=== PATIENT | male | born 1980 | race African-American/Black ===

== ENCOUNTER 2016-10-10 10:03 | Emergency (ER) | payer OTHER ==
[~2016-10-10] VITALS: Ht 182.9 cm; Wt 145.1 kg
[~2016-10-10 10:03] MED LIST: TETRACAINE 0.5% OPHTH SOLUTION 4ML BOTTLE. ONE
[2016-10-10] MEDS ORDERED: FLUORESCEIN 1MG EYE STRIP. ONE (10:18)
[2016-10-10] MEDS ORDERED: EYE-STREAM OPTH SOLUTION 30 ML BOTTLE. ONE (10:18)
[2016-10-10] MEDS ORDERED: TETRACAINE 0.5% OPHTH SOLUTION 4ML BOTTLE. ONE (10:36)
[2016-10-10] MEDS ORDERED: TETRACAINE 0.5% OPHTH SOLUTION 4ML BOTTLE. OS ONE (10:45)
[2016-10-10 10:54] VITALS: BP 152/87
[2016-10-10] MEDS ORDERED: POLY10DR EACHEYE (10:54)
--- NOTE | 2016-10-10 11:05 | PHYS DOC ---
Past History Past Medical History: No Pertinent History Past Surgical History: No Surgical History Alcohol Use: Occasionally Drug Use: None Adult General Chief Complaint Chief Complaint: EYE PROBLEMS HPI HPI This 36-year-old man thinks he might have bumped his L eye in the night and now has some pain in the and redness in the left eye. He presents with some pain and some redness of the conjunctiva of the left eye. He also thinks he sees a little white alice on the inner aspect of the right and is concerned about this. Review of Systems Review of Systems Constitutional: Denies fever or chills [] Eyes: Denies change in visual acuity, he has a little redness and left eye pain as mentioned before the pain is especially worse when he looks up [] HENT: Denies nasal congestion or sore throat [] Respiratory: Denies cough or shortness of breath [] Cardiovascular: No additional information not addressed in HPI [] GI: Denies abdominal pain, nausea, vomiting, bloody stools or diarrhea [] : Denies dysuria or hematuria [] Musculoskeletal: Denies back pain or joint pain [] Integument: Denies rash or skin lesions [] Neurologic: Denies headache, focal weakness or sensory changes [] Endocrine: Denies polyuria or polydipsia [] Current Medications Current Medications Current Medications Medications (Trade) Dose Ordered Sig/Dhiraj Start Time Stop Time Status Last Admin Dose Admin Eye Irrigation Solution 30 ml STK-MED ONCE 10/10/16 10:18 10/10/16 10:19 DC Fluorescein Sodium (Ful-Irma 1mg) 1 strip STK-MED ONCE 10/10/16 10:18 10/10/16 10:19 DC Tetracaine HCl (Tetracaine) 1 drop 1X ONCE 10/10/16 10:45 10/10/16 10:46 UNV 10/10/16 10:53 1 DROP Physical Exam Physical Exam Constitutional: Well developed, well nourished, no acute distress, non-toxic appearance. [] HENT: Normocephalic, atraumatic, bilateral external ears normal, oropharynx moist, no oral exudates, nose normal. [] Eyes: PERRLA, EOMI, conjunctiva normal, no discharge. Detailed eye examination reveals the pupils are equal. There is some conjunctival redness in the left eye. Fluorescein stain was used to examine the eye and no uptake of stain was noted on the cornea by slit lamp. No flare or cells were noted in the anterior chamber. Examination of the eye reveals an early pinguecula medial aspect of the right eye approaching the cornea. No foreign bodies were noted in the conjunctival sac Funduscopic examination is entirely normal. Mac-Pen was used to measure the pressures and pressures of 13, 15, 13, 21 were noted Neck: Normal range of motion, no tenderness, supple, no stridor. [] Cardiovascular:Heart rate regular rhythm, no murmur [] Lungs & Thorax: Bilateral breath sounds clear to auscultation [] Abdomen: Bowel sounds normal, soft, no tenderness, no masses, no pulsatile masses. [] Skin: Warm, dry, no erythema, no rash. [] Back: No tenderness, no CVA tenderness. [] Extremities: No tenderness, no cyanosis, no clubbing, ROM intact, no edema. [] Neurologic: Alert and oriented X 3, normal motor function, normal sensory function, no focal deficits noted. [] Psychologic: Affect normal, judgement normal, mood normal. [] Current Patient Data Vital Signs Vital Signs Date Time Temp Pulse Resp B/P (MAP) Pulse Ox O2 Delivery O2 Flow Rate FiO2 10/10/16 10:54 88 18 152/87 (108) 95 Room Air 10/10/16 10:27 98.2 EKG EKG [] Radiology/Procedures Radiology/Procedures [] Impressions: Conjunctivitis Course & Med Decision Making Course & Med Decision Making This gentleman was placed on Polytrim eyedrops to use 4 times daily. He was instructed that if his problems don't resolve to follow-up with the licensed prosthetist or return It was explained that he had a early pinguecula but should not cause any problems but he could inquire about this with the licensed prosthetist He was instructed to follow-up within a week and was given names of licensed prosthetist [] Dragon Disclaimer Dragon Disclaimer This chart was dictated in whole or in part using Voice Recognition software in a busy, high-work load, and often noisy Emergency Department environment. It may contain unintended and wholly unrecognized errors or omissions. Departure Departure: Impression: Primary Impression: Conjunctivitis Disposition: 01 HOME, SELF-CARE Condition: STABLE Patient Instructions: Conjunctivitis (Viral and Bacterial) Additional Instructions: Follow up with an Ophthalmalogist (eye doctor ) within one week for recheck The white on the inner portion of her eye going on to the Brown is called a Pinguecula and you have only a very tiny beginning of one Scripts Polymyxin B Sulf/Trimethoprim (POLYTRIM EYE DROPS) 10 Ml Drops 1 DROP EACHEYE Q6HRS for 7 Days, #10 ML Prov: JUSTINE CENTENO MD 10/10/16 JUSTINE CENTENO MD Oct 10, 2016 11:05
== END 2016-10-10 11:04 | disposition home or self-care (01) ==
LOC: ER 10:03
DX: H10.9 Unspecified conjunctivitis (principal)
CPT/HCPCS: 99283

== ENCOUNTER 2017-05-23 20:03 | Emergency (ER) | payer OTHER ==
[~2017-05-23 20:03] MED LIST changes: +POLY10DR EACHEYE; -TETRACAINE 0.5% OPHTH SOLUTION 4ML BOTTLE. ONE
[2017-05-23 20:05] VITALS: BP 144/84
--- NOTE | 2017-05-23 20:12 | ED.ADGEN ---
Past History Past Medical History: No Pertinent History Past Surgical History: No Surgical History Alcohol Use: Occasionally Drug Use: None Adult General Chief Complaint Chief Complaint " I got flu.. or something..sore throat, fever, chills.. probably got it from my kids..." HPI HPI Patient is a 37 year old male who presents with above hx and complaint fever, chills, pharyngitis, malaise, myalgia, arthralgia, and fatigue. Patient's children have both been sick with a virus. Patient normally follows at [facility]. No history immunosuppression. Pt. no history of travel. Patient normally follows with Dr. Butler. Review of Systems Review of Systems Constitutional: Hx fever or chills [] Eyes: Denies change in visual acuity, redness, or eye pain [] HENT:Hx. s nasal congestion & sore throat [] Respiratory: Denies cough or shortness of breath [] Cardiovascular: No additional information not addressed in HPI [] GI: Denies abdominal pain, nausea, vomiting, bloody stools or diarrhea [] : Denies dysuria or hematuria [] Musculoskeletal: Denies back pain or joint pain [] Integument: Denies rash or skin lesions [] Neurologic: Denies headache, focal weakness or sensory changes [] Endocrine: Denies polyuria or polydipsia [] All other systems were reviewed and found to be within normal limits, except as documented in this note. Family History Family History Children sick with URI Current Medications Current Medications Current Medications Medications (Trade) Dose Ordered Sig/Dhiraj Start Time Stop Time Status Last Admin Dose Admin Ibuprofen (Motrin) 600 mg 1X ONCE 05/23/17 20:45 05/23/17 20:46 DC 05/23/17 21:12 600 MG Multivitamins/ Minerals 10 ml/ Folic Acid 1 mg/ Thiamine HCl 100 mg/Lactated Ringer's 1,011.2 ml @ 1,000 mls/ hr 1X ONCE 05/23/17 21:00 05/23/17 21:29 DC Prednisone (Prednisone) 60 mg 1X ONCE 05/23/17 20:45 05/23/17 20:46 DC 05/23/17 21:14 60 MG See Nursing Allergies Allergies Allergies Coded Allergies Type Severity Reaction Last Updated Verified shellfish derived Allergy Severe 10/10/16 Yes Physical Exam Physical Exam Constitutional: Well developed, well nourished,mild to moderate distress, non- toxic appearance. [] HENT: Normocephalic, atraumatic, bilateral external ears normal, oropharynx moist,injected pharynx, no oral exudates, nose rhinorrhea. Eyes: PERRLA, EOMI, conjunctiva normal, no discharge. [] Neck: Normal range of motion, no tenderness, supple, no stridor. [] Cardiovascular:Heart rate regular rhythm, no murmur [] Lungs & Thorax: Bilateral breath sounds clear to auscultation [] Abdomen: Bowel sounds normal, soft, no tenderness, no masses, no pulsatile masses. [] Skin: Warm, dry, no erythema, no rash. [] Back: No tenderness, no CVA tenderness. [] Extremities: No tenderness, no cyanosis, no clubbing, ROM intact, no edema. [] Neurologic: Alert and oriented X 3, normal motor function, normal sensory function, no focal deficits noted. [] Psychologic: Affect normal, judgement normal, mood normal. [] Current Patient Data Vital Signs Vital Signs Date Time Temp Pulse Resp B/P (MAP) Pulse Ox O2 Delivery O2 Flow Rate FiO2 05/23/17 20:05 97.9 92 22 95 Room Air Lab Results Laboratory Tests Test 05/23/17 20:25 Influenza Type A (Rapid) Negative (NEGATIVE) Influenza Type B (Rapid) Negative (NEGATIVE) Group A Streptococcus Rapid Negative (NEGATIVE) EKG EKG [] Radiology/Procedures Radiology/Procedures [] Course & Med Decision Making Course & Med Decision Making Pertinent Labs and Imaging studies reviewed. (See chart for details). Gargle with Listerine 4 times a day. Fluids. Take [id number] Tylenol and ibuprofen as needed for pain. Benadryl 25-50 mg 4 times a day may be helpful.. Follow-up primary care. Return if any concerns. [] Final Impression Final Impression 1. URI[] 2. Viral pharyngitis Problems: Dragon Disclaimer Dragon Disclaimer This electronic medical record was generated, in whole or in part, using a voice recognition dictation system. YVAN RÍOS MD May 23, 2017 20:12
[2017-05-23] MEDS ORDERED: IBUPROFEN 600 MG TABLET. PO ONE (20:45)
[2017-05-23] MEDS ORDERED: predniSONE 20 MG TABLET PO ONE (20:45)
[2017-05-23] MEDS ORDERED: MVI, ADULT NO.4 WITH VIT K 10 ML, FOLIC ACID SYRINGE for ER 1 MG, THIAMINE 100 MG in IV... IV ONE ×4 (21:00)
[2017-05-23 21:07] LABS: INFLUENZA A PATIENT NEGATIVE (NEGATIVE); INFLUENZA B PATIENT NEGATIVE (NEGATIVE)
--- NOTE | 2017-05-23 21:25 | RAD ---
CT HEAD INDICATION: [id number] Severe headache today. No priors. COMPARISON: None Available. TECHNIQUE: 5 mm contiguous axial images were obtained from the skull base to the vertex Exposure: One or more of the following individualized dose reduction techniques were utilized for this examination: 1. Automated exposure control 2. Adjustment of the mA and/or kV according to patient size 3. Use of iterative reconstruction technique FINDINGS: No abnormal attenuation within the brain parenchyma. No evidence of acute intracranial hemorrhage. No extra-axial fluid collections. No mass effect or midline shift. Ventricular size is appropriate. Basal cisterns are patent. No fractures identified.Ghosh-white differentiation is preserved.Globes and orbits are within normal limits. Paranasal sinuses and mastoid air cells are clear. IMPRESSION: Unremarkable CT examination of the head without contrast, as above. Specifically, no evidence of an acute intracranial abnormality. Electronically signed by: Eric Pabon MD (05/23/2017 9:22 PM) [id number]
--- NOTE | 2017-05-24 07:50 | RAD ---
2 view chest 05/23/2017 Clinical indication: Fever, chills, cough. Comparison: None. Findings: Elevation of the right hemidiaphragm. Cardiac and mediastinal silhouettes are unremarkable. No pleural effusion, pneumothorax or focal consolidation. Impression: 1. Mild elevation of the right hemidiaphragm. 2. Otherwise, no acute cardiopulmonary abnormality.
== END 2017-05-23 21:29 | disposition home or self-care (01) ==
LOC: ER 20:03
DX: J02.8 Acute pharyngitis due to other specified organisms (principal); B97.89 Other viral agents as the cause of diseases classified elsewhere; Z91.013 Allergy to seafood
CPT/HCPCS: 70450; 71046; 87070; 87804; 87880; 99285; J7512